=== PATIENT | female | born 1995 | race Caucasian/White ===

== ENCOUNTER 2017-11-17 00:10 | Emergency (ER) | payer MEDICAID, OTHER ==
[~2017-11-17] VITALS: Ht 165.1 cm; Wt 57.6 kg
[2017-11-17] MEDS ORDERED: XULANE (00:46)
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
[2017-11-17 01:27] LABS: ABG OXYGEN SATURATION 98 % (94-100); ABG PCO2 39 MMHG (35-45); ABG PO2 87 MMHG (79-93); ABG TCO2 24.5 MMOL/L (21.0-31.0); ALLENS TEST YES-POS; INSPIRED O2 RA; PATIENT TEMP 97.1; VENTILATOR NO
[2017-11-17 01:46] VITALS: BP 117/79
== END 2017-11-17 01:48 | disposition home or self-care (01) ==
LOC: ER 00:15
DX: T59.811A Toxic effect of smoke, accidental (unintentional), initial encounter (principal); J70.5 Respiratory conditions due to smoke inhalation; R07.9 Chest pain, unspecified; R42 Dizziness and giddiness; R06.02 Shortness of breath; Z77.098 Contact with and (suspected) exposure to other hazardous, chiefly nonmedicinal, chemicals; Z77.22 Contact with and (suspected) exposure to environmental tobacco smoke (acute) (chronic)
CPT/HCPCS: 36600; 82375; 82805; 99285